=== PATIENT | male | born 1955 | race Caucasian/White ===

== ENCOUNTER 2019-12-09 | Emergency (ER) | payer SELFPAY ==
[~2019-12-09] MED LIST: NO; PRILOSEC20 MG/CAP PO
[2019-12-09] MEDS ORDERED: VIAGRA25 MG PO (12:57)
[2019-12-09 13:19] LABS: HEMATOCRIT 46.6 % (39.0-50.0); HEMOGLOBIN 15.8 g/dl (14.0-18.0); IMMATURE GRANULOCYTES 0.4 % (0.0-5.0); MEAN CELL VOLUME 92.5 fL CALC (80.0-100.0); MEAN CORPUSCULAR HGB 31.3 pG CALC (26.0-32.0); MEAN CORPUSCULAR HGB CONC 33.9 g/L CALC (32.0-36.0); NEUT# 6.58 thou/uL (1.82-7.42); RED BLOOD COUNT 5.04 mill/uL (4.70-6.10); RED CELL DISTRI WIDTH 12.3 % (11.5-15.5)
[2019-12-09 13:45] LABS: ALBUMIN 4.9 g/dL (3.2-5.0); ALKALINE PHOSPHATASE 79 u/l (38-126); BUN 8 mg/dL (8-23); BUN/CREATININE RATIO 9 (12-20 (CALC)); CHLORIDE 105 mmol/l (95-108); CREATININE 0.9 mg/dL (0.7-1.3); GFR > 60 ML/MIN (>=60 (CALC)); GFR FOR AFR.AMER. > 60 ML/MIN (>=60 (CALC)); POTASSIUM 4.1 mmol/l (3.5-5.1); SODIUM 141 mmol/l (137-146); TOTAL PROTEIN 8.3 g/dL (6.3-8.2)
[2019-12-09 13:47] LABS: ANION GAP 14 (6-22 (CALC)); BILIRUBIN, TOTAL 3.3 mg/dL (0.0-1.4); CARBON DIOXIDE 26 mmol/l (22-30); SGOT/AST 61 u/l (19-48)
[2019-12-09 13:48] LABS: URINE BLOOD DIPSTICK SMALL (NEGATIVE); URINE COLOR YELLOW; URINE GLUCOSE - DIPSTICK NEGATIVE (NEGATIVE); URINE KETONE TRACE mg/dL (NEGATIVE); URINE LEUK ESTERASE NEGATIVE (NEGATIVE); URINE PH 5.5 (4.5-8.0); URINE PROTEIN - DIPSTICK 30 mg/dL (NEG-TRACE); URINE SPECIFIC GRAVITY >=1.030; URINE UROBILINOGEN - DIPSTICK 0.2 E.U./dL (0.2)
[2019-12-09 13:49] LABS: URINE BILIRUBIN - DIPSTICK NEGATIVE (NEGATIVE); URINE NITRITE - DIPSTICK POSITIVE (Negative)
[2019-12-09 13:50] LABS: BARBITURATES NEGATIVE (NEGATIVE); COCAINE NEGATIVE (NEGATIVE); METHADONE NEGATIVE (NEGATIVE); OXCYCODONE NEGATIVE (NEGATIVE); TETRAHYDROCANNABIONOL NEGATIVE (NEGATIVE); TRICYLIC ANTIDEPRESSANTS NEGATIVE (NEGATIVE); URINE BACTERIA RARE hpf; URINE WBC 0-2 WBC/hpf (0-5)
[2019-12-09 13:57] LABS: MYOGLOBIN 46 ng/mL (0 - 121)
== END 2019-12-09 19:50 | disposition short-term general hospital (02) | DRG 93 ==
PROVIDERS: Emergency Medicine
DX: G25.2 Other specified forms of tremor (principal); I10 Essential (primary) hypertension; F17.220 Nicotine dependence, chewing tobacco, uncomplicated
CPT/HCPCS: J2060

== ENCOUNTER 2021-06-26 18:27 | Emergency (ER) | payer MEDICARE ==
[~2021-06-26] VITALS: Ht 188 cm; Wt 100.0 kg
[~2021-06-26 18:27] MED LIST changes: +VIAGRA25 MG PO
[2021-06-26 19:15] LABS: HEMOGLOBIN 15.3 g/dl (14.0-18.0); IMMATURE GRANULOCYTES 0.1 % (0.0-5.0); MEAN CELL VOLUME 92.8 fL CALC (80.0-100.0); MEAN CORPUSCULAR HGB 31.5 pG CALC (26.0-32.0); NEUT# 4.07 thou/uL (1.82-7.42); RED BLOOD COUNT 4.85 mill/uL (4.70-6.10); RED CELL DISTRI WIDTH 11.9 % (11.5-15.5)
[2021-06-26 19:29] LABS: ALBUMIN 4.4 g/dL (3.2-5.0); ALKALINE PHOSPHATASE 52 u/l (38-126); ANION GAP 16 (6-22 (CALC)); BUN 9 mg/dL (8-23); BUN/CREATININE RATIO 9 (12-20 (CALC)); CARBON DIOXIDE 22 mmol/l (22-30); CHLORIDE 105 mmol/l (95-108); GFR > 60 ML/MIN (>=60 (CALC)); GFR FOR AFR.AMER. > 60 ML/MIN (>=60 (CALC)); SGOT/AST 29 u/l (19-48); SODIUM 139 mmol/l (137-146); TOTAL PROTEIN 7.5 g/dL (6.3-8.2)
[2021-06-26 19:30] LABS: ACT PARTIAL THROMBO TIME 22.2 SECONDS (20.0-32.5); INTERNATIONAL NORMALIZED RATIO 0.9 RATIO (0.7-1.3); PROTHROMBIN TIME 9.8 SECONDS (9.0-12.5)
[2021-06-26] MEDS ORDERED: XARELTO15 MG PO (22:18)
[2021-06-26] MEDS ORDERED: KEFLEX500 MG PO (22:18)
[2021-06-26 23:10] VITALS: BP 140/84
== END 2021-06-26 23:35 | disposition home or self-care (01) ==
LOC: ED 18:27
DX: I80.02 Phlebitis and thrombophlebitis of superficial vessels of left lower extremity (principal); L03.116 Cellulitis of left lower limb; I10 Essential (primary) hypertension; F17.200 Nicotine dependence, unspecified, uncomplicated
CPT/HCPCS: J1650

== ENCOUNTER 2022-03-23 09:14 | Day surgery (SDC) | payer MEDICARE, MEDICAID ==
[~2022-03-23] VITALS: Ht 185.4 cm; Wt 94.8 kg
[~2022-03-23 09:14] MED LIST changes: +CITALOPRAM40 M1; +CLONAZEP ODT1 MG PO; +KEFLEX500 MG PO; +METHOCARBAMOL750 MG PO; +NORVASC5 M1 PO; +ROPINIROLE2 MG PO; +XARELTO15 MG PO; +ZOLPIDEM10 M1 PO
[2022-03-23 12:53] VITALS: BP 160/100
== END 2022-03-23 13:15 | disposition home or self-care (01) ==
LOC: ENDO 09:14 → ORM 09:30 → ENDO 09:30
PROVIDERS: ATTEND Surgery
PROC: 0DBK8ZX Excision of Ascending Colon, Via Natural or Artificial Opening Endoscopic, Diagnostic (ICD-10-PCS; principal; 2022-03-23)
PROC: 0DBP8ZX Excision of Rectum, Via Natural or Artificial Opening Endoscopic, Diagnostic (ICD-10-PCS; 2022-03-23)
PROC: 0DBM8ZX Excision of Descending Colon, Via Natural or Artificial Opening Endoscopic, Diagnostic (ICD-10-PCS; 2022-03-23)
DX: D12.2 Benign neoplasm of ascending colon (principal); D12.4 Benign neoplasm of descending colon; D12.8 Benign neoplasm of rectum; I10 Essential (primary) hypertension; F32.A Depression, unspecified; F17.200 Nicotine dependence, unspecified, uncomplicated

== ENCOUNTER 2022-08-05 12:53 | Emergency (ER) | payer MEDICARE, MEDICAID ==
[~2022-08-05] VITALS: Ht 185.4 cm; Wt 93.6 kg
[2022-08-05] MEDS ORDERED: CEPHALEXIN500 M1 PO (14:28)
[2022-08-05 14:29] VITALS: BP 142/86
[2022-08-05] MEDS ORDERED: HYDROCO/APAP1 TA9 PO (14:42)
== END 2022-08-05 14:54 | disposition home or self-care (01) ==
LOC: ED 12:53
PROC: 0JQK3ZZ Repair Left Hand Subcutaneous Tissue and Fascia, Percutaneous Approach (ICD-10-PCS; principal; 2022-08-05)
DX: S61.211A Laceration without foreign body of left index finger without damage to nail, initial encounter (principal); S62.661A Nondisplaced fracture of distal phalanx of left index finger, initial encounter for closed fracture; I10 Essential (primary) hypertension; F17.200 Nicotine dependence, unspecified, uncomplicated; W31.2XXA Contact with powered woodworking and forming machines, initial encounter; Y92.009 Unspecified place in unspecified non-institutional (private) residence as the place of occurrence of the external cause; Z79.01 Long term (current) use of anticoagulants

== ENCOUNTER 2022-08-07 08:38 | Emergency (ER) | payer MEDICARE, MEDICAID ==
[~2022-08-07] VITALS: Ht 185.4 cm; Wt 93.6 kg
[~2022-08-07 08:38] MED LIST changes: +CEPHALEXIN500 M1 PO; +HYDROCO/APAP1 TA9 PO
[2022-08-07 08:59] VITALS: BP 134/86
[2022-08-07 09:30] VITALS: BP 135/81
[2022-08-07 10:00] VITALS: BP 150/94
[2022-08-07 10:38] VITALS: BP 150/94
== END 2022-08-07 10:41 | disposition home or self-care (01) ==
LOC: ED 08:38
DX: S61.211D Laceration without foreign body of left index finger without damage to nail, subsequent encounter (principal); L08.9 Local infection of the skin and subcutaneous tissue, unspecified; I10 Essential (primary) hypertension; F17.200 Nicotine dependence, unspecified, uncomplicated; X58.XXXD Exposure to other specified factors, subsequent encounter